=== PATIENT | male | born 1990 | race Caucasian/White ===

== ENCOUNTER 2023-09-04 17:18 | Emergency (ER) | payer OTHER ==
[2023-09-04] MEDS ORDERED: Mag-Al Plus 1200/1200/120 MG (30 mL) UDCUP ONE (17:48)
[2023-09-04] MEDS ORDERED: Acetaminophen 500 MG TAB ONE (17:48)
[2023-09-04] MEDS ORDERED: Sodium Chloride 0.9% 1,000 ML ONE ×2 (17:50→18:25)
[2023-09-04] MEDS ORDERED: Famotidine/PF 20 mg/2ml Vial ONE (17:50)
[2023-09-04] MEDS ORDERED: Lidocaine 2% Viscous 100 ML BOTTLE ONE (17:50)
[2023-09-04 17:54] LABS: #Basophils 0.1 thou/uL (0.0-0.2); #Eosinphils 0.1 thou/uL (0.0-0.7); #Lymphocytes 2.4 thou/uL (1.20-3.40); #Neutrophils 13.3 thou/uL (1.40-6.50); %Basophils 0.5 % (0.0-1.0); %Eosinophils 0.4 % (0.0-10.0); %Lymphocytes 14.4 % (21.0-51.0); %Monocytes 5.7 % (0.0-10.0); %Neutrophils 78.9 % (42.0-75.0); Hematocrit 54.5 % (42.0-52.0); Hemoglobin 17.2 g/dL (14.0-18.0); Manual Diff?? NO; Mean Corpuscular HGB CONC 31.5 g/dL (32.0-36.0); Mean Corpuscular Hemoglobin 28.6 pg (27.0-31.0); Mean Corpuscular Volume 90.7 fl (78.0-98.0); Mean Platelet Volume 7.1 fL (7.4-10.4); Platelet Count 310 10x3/uL (130-400); RBC Distribution Width 12.1 % (11.5-14.5); Red Blood Cell (RBC) Count 6.01 mill/uL (4.70-6.10); White Blood Cell (WBC) Count 16.8 10x3/uL (4.8-10.8)
[2023-09-04 18:09] LABS: ALT (SGPT) 35 U/L (8-55); AST (SGOT) 27 U/L (5-34); Albumin 5.3 g/dL (3.5-5.0); Alkaline Phosphatase 89 U/L (40-110); Anion Gap 19 mmol/L (10-20); BUN (Urea Nitrogen) 21 mg/dL (8.9-20.6); Bilirubin, Total 0.9 mg/dL (0.2-1.2); Calc. Creatinine Clearance 0 mL/min (70-130); Calcium 10.3 mg/dL (7.8-10.44); Carbon Dioxide 19 mmol/L (22-29); Chloride 106 mmol/L (98-107); Estimated GFR 71; Globulin 3.9 g/dL (2.4-3.5); Glucose 102 mg/dL (70-105); Lipase 40 U/L (8-78); Magnesium 1.8 mg/dL (1.6-2.6); Potassium 3.8 mmol/L (3.5-5.1); Protein, Total 9.2 g/dL (6.0-8.3); Sodium 140 mmol/L (136-145)
== END 2023-09-04 20:05 | disposition home or self-care (01) ==
LOC: NAV ERS 17:18
DX: K29.00 Acute gastritis without bleeding (principal); R19.7 Diarrhea, unspecified; I10 Essential (primary) hypertension; F17.290 Nicotine dependence, other tobacco product, uncomplicated; Z79.899 Other long term (current) drug therapy
CPT/HCPCS: 80053; 83690; 83735; 85025; 96361; 96374; J7050; S0028